=== PATIENT | female | born 1970 | race Caucasian/White ===

== ENCOUNTER 2023-02-25 22:14 | Emergency (ER) | payer OTHER, SELFPAY ==
[2023-02-25 22:18] VITALS: BP 158/81; PULSE 68; RESP 18; TEMP 35.6; O2SAT 99
--- NOTE | 2023-02-25 22:37 | ED.GENADULT ---
HPI - General Adult General Chief complaint: Back Injury/Pain Stated complaint: Back Pain Time Seen by Provider: 02/25/23 22:31 History of Present Illness HPI narrative: pt complains of lower back pain to right hip. Pain rated 9/10. Pt also complains of lower abd pressure, rated 7/10. Pain started this afternoon, pt thought she pulled her back . last oral intake, 2100- chips and Gatorade. 52-year-old woman presenting to the emergency department with complaint of right lower back hip area pain that she indicates by pressing her hand into her right upper buttock/sacral area. Does not appear that she can not really affect the pain very much 1 way or another. Has been feeling intense lower abdominal pressure. With the initial onset of discomfort she thought maybe she had pulled something in her back but there was no precipitating event identified. Has been having a sense of urgency and frequency as well but can not really urinate much. No actual dysuria. No hematuria. No fever. No history of recurrent urinary tract infections. Not exactly nauseated but does not want to eat. Is thirsty. 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 When asked, does recall that her brother likely had a kidney stone. Related Data Previous Rx's Medication Instructions Recorded tamsulosin 0.4 mg capsule (Flomax) 0.4 mg PO DAILY Urinary system 02/26/23 spasm #15 caps Allergies Allergy/AdvReac Type Severity Reaction Status Date / Time No Known Drug Allergies Allergy Verified 02/25/23 22:22 Review of Systems Status of ROS: Reports: 6 or more systems reviewed and unremarkable except as noted in History and below Exam Narrative: Exam Narrative: Very pleasant. Clearly uncomfortable. Restless. Skin is warm and dry. On see our signs of trauma. She is well-perfused peripherally moving all extremities without difficulty. Heart in regular rate and rhythm. Lungs appear to be clear/breathing easily. No pain to palpation of the back though in the right SI joint is where she thinks there is some reproduction of pain. No flank percussion tenderness. Not exacerbated with elevation legs. Abdomen is soft and vaguely uncomfortable/tender to palpation across the low pelvis. Const: Vital Signs, click to edit/add: Vital Signs - 24 hr 02/25/23 22:18 Temperature 96.1 F L Pulse Rate [Left P ulse Oximeter] 68 Respiratory Rate 18 Blood Pressure [Ri ght Upper Arm] 158/81 H Pulse Oximetry 99 Oxygen Delivery Me thod Room Air Documenting provider has reviewed patient's vital signs: yes Course Vital Signs Vital signs: Initial Vital Signs Temperature 96.1 F L 02/25/23 22:18 Temperature Source Temporal Artery Scan 02/25/23 22:18 Pulse Rate 68 02/25/23 22:18 Pulse Rhythm Regular 02/25/23 22:18 Respiratory Rate 18 02/25/23 22:18 Blood Pressure 158/81 H 02/25/23 22:18 Blood Pressure Mean 106 H 02/25/23 22:18 Blood Pressure Position Sitting 02/25/23 22:18 Pulse Oximetry 99 02/25/23 22:18 Oxygen Delivery Method Room Air 02/25/23 22:18 Vital Signs Temperature 96.1 F L 02/25/23 22:18 Pulse Rate 68 02/25/23 22:18 Respiratory Rate 18 02/25/23 22:18 Blood Pressure 158/81 H 02/25/23 22:18 Pulse Oximetry 99 02/25/23 22:18 Oxygen Delivery Method Room Air 02/25/23 22:18 Temperature 96.1 F L 02/25/23 22:18 Pulse Rate 68 02/25/23 22:18 Respiratory Rate 18 02/25/23 22:18 Blood Pressure 158/81 H 02/25/23 22:18 Pulse Oximetry 99 02/25/23 22:18 Oxygen Delivery Method Room Air 02/25/23 22:18 Medical Decision Making MDM Narrative Medical decision making narrative: Knee to evaluate 1st for potential urinary tract infection. Abrupt onset I think is less likely to have pyelonephritis but this is some the area pain. Certainly could have 2 issues going on that being cystitis and sacral iliac joint issue. Could have a high-riding appendicitis radiating to the back but I think this also less likely. Certainly no reproducibility of any significant pain in usual residence of appendix in the abdomen. Does not appear to have history of what would suggest gallbladder disease. Vascular disruption/dissection is still in differential. Ureteral stone and colic I think most likely. Urinalysis without evidence of infection but calcium oxalate is present. We discussed waiting for further labs but I think in the interest of time and I do not see really away out of doing a CT scan at this point. Normal white count would prompt looking for stone and abnormal white count would prompt looking for appendicitis at a minimum possible pyelonephritis. Elevated D-dimer if present with a myriad of causes. White count is a little bit elevated. Unclear if this is infection or margination. IV contrasted CT scan by my read shows right-sided hydronephrosis and a 2 maybe 3 mm stone at the right ureteral vesicular junction. I think diagnosis this is consistent with presentation, that is ureteral colic. On reassessment is markedly improved in her pain. Feels comfortable enough to continue home. Dose of Flomax prior to departure See patient discharge plan Lab Data Lab results reviewed: Yes I reviewed the patient's lab results Labs: Lab Results 02/25/23 02/25/23 Range/Units 22:47 23:40 WBC 12.72 H (4.50-11.00) K/uL RBC 4.63 (4.00-5.20) m/uL Hgb 14.1 (12.0-16.0) gm/dL Hct 40.6 (33.0-51.0) % MCV 88 (80-100) fL MCH 31 (26-34) pg MCHC 35 (32-36) gm/dL RDW Coeff of Cordelia 12.6 (11.5-15.5) % Plt Count 249 (140-440) K/uL Neut % (Auto) 83.2 H (42.0-72.0) % Lymph % (Auto) 7.1 L (20-44) % Lawrence % (Auto) 7.5 (0.0-11.0) % Eos % (Auto) 0.5 (0.0-7.0) % Baso % (Auto) 0.5 (0.0-3.0) % Neut # (Auto) 10.60 H (1.7-7.0) K/uL Lymph # (Auto) 0.90 (0.90-2.90) K/uL Lawrence # (Auto) 1.00 H (0.00-0.90) K/UL Eos # (Auto) 0.10 (0.00-0.50) K/uL Baso # (Auto) 0.10 (0.00-0.30) K/uL Abs Immat Gran (auto) 0.20 (0.00-0.30) K/uL Imm/Tot Granulo (auto) 1.2 % D-Dimer Quant (PE/DVT) 0.35 (0.00-0.50) ug/ml Sodium 140 (135-149) mmol/L Potassium 3.7 (3.6-5.1) mmol/L Chloride 107 (96-114) mmol/L Carbon Dioxide 26 (20-32) mmol/L Anion Gap 7 (7-15) mEq/L BUN 21 (7-30) mg/dL Creatinine 1.0 (0.5-1.5) mg/dL Estimated GFR 67 ml/min Glucose 127 H (60-115) mg/dL Calcium 9.6 (8.4-10.6) mg/dL Total Bilirubin 0.4 (0.1-1.5) mg/dL Direct Bilirubin 0.1 (0.0-0.5) mg/dL AST 27 (12-35) U/L ALT 28 (4-35) U/L Alkaline Phosphatase 75 (40-150) U/L C-Reactive Protein < 0.5 L (0.5-1.0) mg/dL Total Protein 7.3 (6.0-8.3) g/dL Albumin 4.5 (3.3-5.0) g/dL Urine Color Yellow (Yellow) Urine Appearance Clear (Clear) Urine pH 6.0 (5.0-8.5) Ur Specific [place] >= 1.030 (1.000-1.030) Urine Protein Negative (Negative) Urine Glucose (UA) Negative (Negative) Urine Ketones Negative (Negative) Urine Blood Negative (Negative) Urine Nitrite Negative (Negative) Urine Bilirubin Negative (Negative) Urine Urobilinogen 1.0 (0.2-1.0) Ur Leukocyte Esterase Negative (Negative) Urine RBC 0-2 (0-2) Urine WBC 2-5 (0-5) Ur Squamous Epith Cells Few (None-Few) Calcium Oxalate Crystal Few A (None) Urine Bacteria Few A (None) Discharge Plan Discharge Clinical Impression: Ureteral colic, Right ureteral calculus Patient Disposition: Home, Self-Care Condition: Improved Additional Instructions: Stay well-hydrated generally. Consider straining your urine over this next week. While it is likely calcium oxalate, stone analysis might provide further recommendations of medical or dietary changes that might be beneficial. Should you choose to get the Flomax, you would take this until it appears that the stone is no longer an issue. Flomax seems to help with cramping/spasming and therefore pain. Return/be evaluated for uncontrolled pain, repeated vomiting, associated fever, pain lasting longer than 4 more days. Can take up to 800 mg of ibuprofen per dose or alternatively up to 500 mg of naproxen 2 times daily. Percocet from [facility] if needed. Prescriptions: New tamsulosin [Flomax] 0.4 mg capsule 0.4 mg PO DAILY Qty: 15 0RF Follow Up/Referrals: Provider,Not a Local [Primary Care Provider] - Stand Alone Forms: [employer] Info Instructions
[2023-02-25 22:52] LABS: Appearance Urine Clear (Clear); Bilirubin Urine Negative (Negative); Blood Urine Negative (Negative); Color Urine Yellow (Yellow); Glucose Urine Negative (Negative); Ketones Urine Negative (Negative); Leukocyte Esterase Urine Negative (Negative); Nitrite Urine Negative (Negative); Protein Urine Negative (Negative); Specific Gravity Urine >= 1.030 (1.000-1.030)
[2023-02-25 22:59] LABS: Bacteria Urine Few; RBC Urine 0-2 (0-2); Squamous Epithelial Cell Urine Few (None-Few)
[2023-02-25 23:00] LABS: Calcium Oxalate Crystals Urine Few
--- NOTE | 2023-02-25 23:29 | CRLHL7_ITS ---
For Patients: As a result of the Century Cures Act, medical imaging exams and procedure reports are released immediately into your electronic medical record. You may view this report before your referring provider. If you have questions, please contact your health care provider. INDICATION: Right lower quadrant abdomen pain. TECHNIQUE: CT abdomen and pelvis acquired with 83 cc Isovue 370 IV contrast. COMPARISON: None. FINDINGS: Lower chest: Unremarkable. Liver: Unremarkable. Normal in size and attenuation. No suspicious masses. Gallbladder and bile ducts: Unremarkable. No stones or inflammation. No biliary dilatation. Pancreas: Unremarkable. No mass or inflammation. Spleen: Unremarkable. Normal in size. No masses. Adrenal glands: Unremarkable. No nodules. Kidneys: A small 2 mm stone at the right ureterovesical junction is causing moderate hydronephrosis and perinephric edema. No other stones. GI tract: Unremarkable. Normal in caliber. No sign of mass or inflammation. Normal appendix. Vasculature: Abdominal aorta is normal in caliber. Mesenteric arteries are patent. Lymph nodes: No lymphadenopathy. Peritoneum/Abdominal Wall: Unremarkable. No sign of mass or infiltration. No free air or significant free fluid. Pelvis: Unremarkable. Bones: Unremarkable for age. IMPRESSION: 2 mm stone at the right UVJ causing moderate hydronephrosis. Please note that all CT scans at this facility use dose modulation, iterative reconstruction, and/or weight-based dosing when appropriate to reduce radiation dose to as low as reasonably achievable. Dictated by Gokul Aleman MD @ 02/26/2023 12:44:38 AM (Electronically Signed)
[2023-02-25] MEDS: KETOROLAC 30 MG/ML inj IVP (23:39)
[2023-02-25] MEDS: 0.9 % SODIUM CHLORIDE 1000 ml 1,000 ML IV (23:39)
[2023-02-25] MEDS: MORPHINE 2 MG/ML inj IVP (23:40)
[2023-02-25 23:53] LABS: Basophils Percent Auto 0.5 % (0.0-3.0); Eosinophils Percent Auto 0.5 % (0.0-7.0); Hematocrit 40.6 % (33.0-51.0); Hemoglobin* 14.1 gm/dL (12.0-16.0); Immature Granulocytes Pct Auto 1.2 %; Lymphocytes Percent Auto 7.1 % (20-44); Mean Corpuscular HGB Conc 35 gm/dL (32-36); Mean Corpuscular Hemoglobin 31 pg (26-34); Mean Corpuscular Volume 88 fL (80-100); Monocytes Percent Auto 7.5 % (0.0-11.0); Neutrophils Percent Auto 83.2 % (42.0-72.0); Platelet Count* 249 K/uL (140-440); RDW Coefficient of Variation % 12.6 % (11.5-15.5); Red Blood Count 4.63 m/uL (4.00-5.20); White Blood Count* 12.72 K/uL (4.50-11.00)
[2023-02-25 23:54] LABS: Slide Review Reflex No
[2023-02-26 00:04] LABS: Albumin* 4.5 g/dL (3.3-5.0); Chloride* 107 mmol/L (96-114)
[2023-02-26 00:05] LABS: Potassium* 3.7 mmol/L (3.6-5.1); Sodium* 140 mmol/L (135-149)
[2023-02-26 00:07] LABS: Estimated Glomerular Filt Rate 67 ml/min
[2023-02-26 00:08] LABS: Alanine Aminotransferase* 28 U/L (4-35); Alkaline Phosphatase* 75 U/L (40-150); Anion Gap 7 mEq/L (7-15); Aspartate Amino Transferase* 27 U/L (12-35); Bilirubin Direct* 0.1 mg/dL (0.0-0.5); Bilirubin Total* 0.4 mg/dL (0.1-1.5); Blood Urea Nitrogen* 21 mg/dL (7-30); Calcium* 9.6 mg/dL (8.4-10.6); Carbon Dioxide* 26 mmol/L (20-32); D Dimer Quantitative* 0.35 ug/ml (0.00-0.50); Glucose* 127 mg/dL (60-115); Total Protein* 7.3 g/dL (6.0-8.3)
[2023-02-26 00:12] LABS: C Reactive Protein* < 0.5 mg/dL (0.5-1.0)
[2023-02-26] MEDS: TAMSULOSIN HCL 0.4 MG CAPSULE PO (01:06)
== END 2023-02-26 01:34 | disposition home or self-care (01) ==
PROVIDERS: Emergency Provider Family Medicine
DX: N20.1 Calculus of ureter (principal)
CPT/HCPCS: 36415; 74177; 80048; 80076; 81001; 81015; 85025; 85379; 86140; 87086; 96361; 96374; 96375; 99284; 99285; A9270; J1885; J2270; J7030; Q9967